=== PATIENT | male | born 2000 | race Caucasian/White ===

== ENCOUNTER 2024-03-26 13:31 | Outpatient (CLI) | payer OTHER | END 2024-03-26 13:32 | disposition home or self-care (01) | LOC: CT 13:31 | PROVIDERS: ATTEND Orthopaedic Surgery | DX: S52.501A Unspecified fracture of the lower end of right radius, initial encounter for closed fracture (principal); S52.614A Nondisplaced fracture of right ulna styloid process, initial encounter for closed fracture ==

== ENCOUNTER 2024-03-29 05:40 | Day surgery (SDC) | payer OTHER ==
[2024-03-26 09:46] VITALS: BMI 31.9
[2024-03-29 06:35] LABS: #Basophils 0.08 10x3/uL (0.0-0.2); %Basophils 0.9 % (0.0-1.0); %Eosinophils 5.8 % (0.0-10.0); %Lymphocytes 18.7 % (21.0-51.0); %Monocytes 8.9 % (0.0-10.0); %Neutrophils 65.2 % (42.0-75.0); Hematocrit 43.1 % (42.0-52.0); Hemoglobin 15.1 g/dL (14.0-18.0); Mean Corpuscular Hemoglobin 31.6 pg (27.0-31.0); Mean Corpuscular Volume 90.2 fL (78.0-98.0); Mean Platelet Volume 9.8 fL (7.4-10.4); Platelet Count 304 10x3/uL (130-400); RBC Distribution Width 11.2 % (11.5-14.5); Red Blood Cell (RBC) Count 4.78 mill/uL (4.70-6.10)
[2024-03-29] MEDS ORDERED: Bupivacaine 0.25% HCL 30 ML VIAL ONE (06:39)
[2024-03-29] MEDS ORDERED: CEFAZOLIN 2 GM VIAL ONE (06:57)
[2024-03-29] MEDS ORDERED: PROPOFOL 20 ML ONE (07:16)
[2024-03-29] MEDS ORDERED: fentaNYL PF 100 MCG/2 ML SYRINGE ONE ×2 (07:16→08:43)
[2024-03-29] MEDS ORDERED: Ondansetron PF 4 MG/2 ML Vial ONE (07:19)
[2024-03-29] MEDS ORDERED: Lidocaine 1% PF 5 ML VIAL ONE (07:19)
[2024-03-29] MEDS ORDERED: Ketorolac Tromethamine 30 MG (1 mL) VIAL ONE (07:19)
[2024-03-29] MEDS ORDERED: fentaNYL 50 mcg/mL 1 mL Vial ONE (11:02)
[2024-03-29] MEDS ORDERED: Meperidine HCl/PF 25 MG (1 mL) VIAL ONE (11:07)
[2024-03-29] MEDS ORDERED: HYDROmorphone 0.5 MG/0.5 ML SYRINGE ONE (11:31)
[2024-03-29] MEDS ORDERED: Morphine 2 MG/ML VIAL ONE (12:47)
[2024-03-29] MEDS ORDERED: HYDROcodone/Acetaminophen 5/325 mg Tablet ONE (12:48)
== END 2024-03-29 14:46 | disposition home or self-care (01) ==
LOC: SDC 05:40
PROVIDERS: ATTEND Orthopaedic Surgery
PROC: 0PSH04Z Reposition Right Radius with Internal Fixation Device, Open Approach (ICD-10-PCS; principal; 2024-03-29)
PROC: 0PSSXZZ Reposition Left Thumb Phalanx, External Approach (ICD-10-PCS; principal; 2024-03-29)
DX: S52.571A Other intraarticular fracture of lower end of right radius, initial encounter for closed fracture (principal); S62.212A Bennett's fracture, left hand, initial encounter for closed fracture; S63.024A Dislocation of radiocarpal joint of right wrist, initial encounter; S52.614A Nondisplaced fracture of right ulna styloid process, initial encounter for closed fracture; J30.2 Other seasonal allergic rhinitis; G56.01 Carpal tunnel syndrome, right upper limb; Z79.1 Long term (current) use of non-steroidal anti-inflammatories (NSAID); V89.2XXA Person injured in unspecified motor-vehicle accident, traffic, initial encounter
CPT/HCPCS: 85025; C1713; C1894; J0665; J1885; J2175; J2272; J2405; J2704; J3010